=== PATIENT | male | born 1990 | race Two or more races ===

== ENCOUNTER 2025-03-29 01:24 | Emergency (ER) | payer SELFPAY ==
[2025-03-29] MEDS ORDERED: Sodium Chloride 0.9% 10 ML Syringe FLUSH PRN (01:50)
[2025-03-29 02:06] LABS: BASOPHILS ABSOLUTE AUTO 0.0 K/mm3 (0.0-0.2); BASOPHILS PERCENT AUTO 0.4 % (0.0-1.0); EOSINOPHILS ABSOLUTE AUTO 0.1 K/mm3 (0.0-0.4); EOSINOPHILS PERCENT AUTO 0.9 % (0.0-6.0); IMMATURE GRAN ABSOLUTE AUTO 0.02 K/mm3 (0.00-0.05); IMMATURE GRAN PERCENT AUTO 0.2 % (0.0-0.4); LYMPHOCYTES ABSOLUTE AUTO 2.5 K/mm3 (1.0-4.8); LYMPHOCYTES PERCENT AUTO 30.9 % (24.0-44.0); MEAN PLATELET VOLUME 8.7 fl (9.4-12.4); MONOCYTES ABSOLUTE AUTO 0.7 K/mm3 (0.0-0.8); MONOCYTES PERCENT AUTO 8.2 % (0.0-8.0); NEUTROPHILS ABSOLUTE AUTO 4.8 K/mm3 (1.8-7.7); NEUTROPHILS PERCENT AUTO 59.4 % (41.0-71.0); NRBC ABSOLUTE 0.00 (0.00-0.02); NRBC PERCENT 0.0 % (0.0-0.2); PLATELET COUNT,PLT 291 K/mm3 (150-400); RED BLOOD CELL COUNT 4.99 M/mm3 (4.52-5.90); WHITE BLOOD CELL COUNT,WBC 8.07 K/mm3 (3.9-11.3)
[2025-03-29] MEDS: Ketorolac 30 MG/ML SDV IVPUSH ONE (02:27)
[2025-03-29 02:30] LABS: A/G RATIO 1.1 (1-2); ALANINE AMINOTRANSFERASE,ALT 157 U/L (16-63); ASPARTATE AMNIOTRANSFERASE,AST 55 U/L (15-37); BILIRUBIN TOTAL 0.7 mg/dL (0.2-1.0); BLOOD UREA NITROGEN,BUN 14 mg/dL (7-18); CARBON DIOXIDE,CO2 28 mEq/L (21-32); CHLORIDE,CL 102 mEq/L (98-107); CREATININE 1.0 mg/dL (0.7-1.3); ESTIMATED GFR 100 mL/min (>60); GLUCOSE RANDOM 90 mg/dL (70-99); POTASSIUM,K 3.8 mEq/L (3.5-5.1); PROTEIN TOTAL,TP 7.1 g/dl (6.4-8.2); SODIUM,NA 139 mEq/L (136-145); TROPONIN I HIGH SENSITIVITY 6 pg/mL (<=76)
== END 2025-03-29 03:30 | disposition home or self-care (01) ==
LOC: JD.ED 01:24
DX: S29.011A Strain of muscle and tendon of front wall of thorax, initial encounter (principal); S29.012A Strain of muscle and tendon of back wall of thorax, initial encounter; W00.0XXA Fall on same level due to ice and snow, initial encounter
CPT/HCPCS: 36415; 71250; 74176; 80053; 84484; 85025; 86140; 93005; 96374; 99285; J1885; 93010; 99283